=== PATIENT | male | born 1990 | race Caucasian/White ===

== ENCOUNTER 2019-06-29 17:06 | Emergency (ER) | payer OTHER, SELFPAY ==
[2019-06-29 17:17] VITALS: BP 130/75; PULSE 113; RESP 16; TEMP 37.4; O2SAT 95; BMI 29.6
--- NOTE | 2019-06-29 17:44 | DI.RAD.S_ITS ---
PROCEDURE: XR CHEST 2V INDICATIONS: productive cough, crakles in right side lungs, fever, malais TECHNIQUE: 2 views of the chest were acquired. COMPARISON: None. FINDINGS: Surgical changes and devices: None. Lungs and pleura: Lungs are clear. No pleural effusions or pneumothorax. Mediastinum: Mediastinal contours are normal. Heart size is normal. Bones and chest wall: No suspicious bony abnormalities. Soft tissues appear unremarkable. IMPRESSION: No acute cardiopulmonary pathology. Dictated by: Mele Jiang M.D. on 06/29/2019 at 18:01 Approved by: Mele Jiang M.D. on 06/29/2019 at 18:03
[2019-06-29] MEDS: IBUPROFEN 400 MG TABLET PO (18:04)
[2019-06-29] MEDS: ONDANSETRON 4 MG ODT SL (18:05)
[2019-06-29] MEDS: ACETAMINOPHEN 325 MG TABLET 975 MG PO (18:05)
--- NOTE | 2019-06-29 18:10 | ED_ITS ---
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 When he woke up this afternoon he started having fever and feeling weak with chills. Patient reports he has been hydrating well but has intermittent nausea. Patient reports his coworkers are ill with cold symptoms but denies recent foreign travel. Patient had received flu immunization this season. He has been taking NyQuil before going to sleep in the morning since he works mid shift. Patient has been using Flonase as well for ear and nasal congestion. Related Data Previous Rx's Medication Instructions Recorded dextromethorphan-guaifenesin 1 tab PO BID PRN #14 tab 06/29/19 [Mucinex DM] Allergies Allergy/AdvReac Type Severity Reaction Status Date / Time No Known Drug Allergies Allergy Verified 06/29/19 17:17 Review of Systems <OMKAR VargasP - Last Filed: 06/29/19 19:41> Review of Systems Narrative: General: See HPI HEENT: See HPI Respiratory: Denies dyspnea, (+) moist cough, wheezing, hemoptysis, sputum. Cardiovascular: Denies chest pain, palpitations, orthopnea, edema. Gastrointestinal: Denies (+) nausea, vomiting, abdominal pain, diarrhea, constipation, melena. : Denies dysuria, frequency, incontinence, hematuria, urinary retention. Musculoskeletal: Denies weakness, joint pain or bony pain. Skin: Denies rash, skin lesions, or other. Neurologic: Denies weakness, headache, (+) lightheadedness, numbness, change in speech, confusion, seizures, incoordination. Psychiatric: No concerning psychosocial issues. 12-point review of systems is negative except for those stated above. Patient History <DANN Vargas - Last Filed: 06/29/19 19:41> Medical History No significant past medical history (Acute) Surgical History No pertinent past surgical history (Acute) Social History Smoking Status: Never smoker Smoking Status: Never smoker Substance Use Type: does not use Exam <DANN Vargas - Last Filed: 06/29/19 19:41> Narrative Exam Narrative: GEN: Alert, oriented x 3, ill appearing and nourished, but in no acute distress. Head: Normal cephalic, atraumatic. No scalp or temporal tenderness, palpable mass or rash. EYES: Pupils are equal, round, and reactive to light and accommodation. Extraocular muscles are intact bilaterally. There is no subconjunctival hemorrhage, exudate and sclera non-icteric. ENT: Bilateral auditory canals and tympanic membranes red and bulging. Hearing grossly intact. Nose without bleeding with purulent discharge but no deviation. Facial sinuses tender to palpate. Mucous membrane moist, no mucosal lesion. Throat with erythema, tonsillar hypertrophy and exudate. Uvula in midline, airway patent. Neck: Trachea in midline. No JVD, non-tender without lymphadenopathy. No masses or thyroid megaly. Supple, non-tender and no meningeal signs. CARDIAC: Normal regular rate and rhythm without murmurs, gallops, or rubs. No chest wall tenderness. No peripheral edema, cyanosis or pallor. Capillary refill is less than 2 seconds. RESPIRATORY: Lungs are clear in left lobes with fine crackles in right mid and upper lobes to auscultate. Occasional moist cough noted during exam. No wheezes. No stridor, respiratory distress, increase work of breathing, or accessary muscle used. ABD: Abdomen soft, nontender and non-distended. No guarding or rebound tenderness to palpate. Bowel sounds are normal in all 4 quadrants. There is no palpable masses or organomegaly. EXT: Full painless ROM of all extremities with no loss of sensation, strength, effusion or edema. SKIN: Hot, dry, normal color for patient. No erythema, lesions or rash over visible areas. BACK: Nontender without deformity or crepitance. No flank tenderness. NEUROLOGICAL: Alert and oriented to place, time and person. Sensation and motor function intact bilaterally. No facial droops, dysphasia. PSYCHIATRIC: Good judgement and reason, without hallucinations, abnormal affect or abnormal behaviors during the examination. Initial Vital Signs Initial Vital Signs: Vital Signs Temperature 99.3 F 06/29/19 17:17 Pulse Rate 113 H 06/29/19 17:17 Respiratory Rate 16 06/29/19 17:17 Blood Pressure 130/75 06/29/19 17:17 Pulse Oximetry 95 06/29/19 17:17 <Skip Pina DO - Last Filed: 07/01/19 07:01> Initial Vital Signs Initial Vital Signs: Vital Signs Temperature 99.3 F 06/29/19 17:17 Pulse Rate 113 H 06/29/19 17:17 Respiratory Rate 16 06/29/19 17:17 Blood Pressure 130/75 06/29/19 17:17 Pulse Oximetry 95 06/29/19 17:17 Scores <DANN Vargas - Last Filed: 06/29/19 19:41> GCS [place] coma scale eye opening: Spontaneous [place] coma scale verbal response: Orientated [place] coma scale motor response: Obey commands [place] coma scale total score: 15 Course <DANN Vargas - Last Filed: 06/29/19 19:41> Orders Ordered: Discontinued Medications Acetaminophen (Tylenol) 975 mg PO NOW ONE Stop: 06/29/19 17:45 Last Admin: 06/29/19 18:05 Dose: 975 mg Documented by: NICOLLE Ibuprofen (Advil) 400 mg PO NOW ONE Stop: 06/29/19 17:45 Last Admin: 06/29/19 18:04 Dose: 400 mg Documented by: NICOLLE Ondansetron HCl (Zofran Odt) 4 mg SL NOW ONE Stop: 06/29/19 17:45 Last Admin: 06/29/19 18:05 Dose: 4 mg Documented by: NICOLLE Vital Signs Vital signs: Vital Signs - 8 hr 06/29/19 17:17 06/29/19 19:29 Temperature 99.3 F 99.0 F Pulse Rate 113 H 100 H Respiratory Rate 16 16 Blood Pressure 130/75 Blood Pressure [Left Arm] 128/72 Pulse Oximetry 95 95 <DO Mark Delvalle Last Filed: 07/01/19 07:01> Orders Ordered: Discontinued Medications Acetaminophen (Tylenol) 975 mg PO NOW ONE Stop: 06/29/19 17:45 Last Admin: 06/29/19 18:05 Dose: 975 mg Documented by: NICOLLE Ibuprofen (Advil) 400 mg PO NOW ONE Stop: 06/29/19 17:45 Last Admin: 06/29/19 18:04 Dose: 400 mg Documented by: NICOLLE Ondansetron HCl (Zofran Odt) 4 mg SL NOW ONE Stop: 06/29/19 17:45 Last Admin: 06/29/19 18:05 Dose: 4 mg Documented by: NICOLLE Vital Signs Vital signs: Vital Signs - 8 hr 06/29/19 17:17 06/29/19 19:29 Temperature 99.3 F 99.0 F Pulse Rate 113 H 100 H Respiratory Rate 16 16 Blood Pressure 130/75 Blood Pressure [Left Arm] 128/72 Pulse Oximetry 95 95 MDM - URI/Sore Throat <DANN Vargas - Last Filed: 06/29/19 19:41> Differential Diagnosis Differential diagnosis: Likely upper respiratory infection, otitis media, influenza, pharyngitis and other (Sinus infection, pneumonia) Medical Records Attestation: I reviewed the patient's medical records. Lab Data Attestation: I reviewed the patient's lab results. Labs: Lab Results 06/29/19 Range/Units 17:48 Influenza A (RT-PCR) Flu a positive H (NEGATIVE) Influenza B (RT-PCR) Flu b negative (NEGATIVE) Point of Care Testing Rapid Strep A Negative Imaging Data Chest x-ray: Radiologist's Impression: [address] [address] XRay Report Signed Patient: Kaushal Vincent TMR#: [id number] : 1990Acct:[id number] Age/Sex: 28 / MDate of Service: 06/29/19 Loc: ED Accession Number: [id number] Procedure: XR chest 2V Ordering Provider: Darryl Daugherty PROCEDURE: XR CHEST 2V INDICATIONS: productive cough, crakles in right side lungs, fever, malais TECHNIQUE: 2 views of the chest were acquired. COMPARISON: None. FINDINGS: Surgical changes and devices: None. Lungs and pleura: Lungs are clear. No pleural effusions or pneumothorax. Mediastinum: Mediastinal contours are normal. Heart size is normal. Bones and chest wall: No suspicious bony abnormalities. Soft tissues appear unremarkable. IMPRESSION: No acute cardiopulmonary pathology. Dictated by: Mele Jiang M.D. on 06/29/2019 at 18:01 Approved by: Mele Jiang M.D. on 06/29/2019 at 18:[address] 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 Lung sounds with mild crackles on right upper and mid lobes with occasional moist cough. Patient appears to be ill and in discomfort. Patient medicated with Tylenol and Motrin for discomfort while in ED. Flu swab was obtained which showed positive for influenza A. Chest x-ray was obtained with negative for acute findings. Patient opted out for Tamiflu therapy. Patient advised continue with supportive care with [id number] Tylenol and Motrin for aches and fever. Also to use Mucinex DM for cough and continue to use Flonase for congestion and good hand hygiene. Patient's vital signs been improved before discharged to home. Patient provided with work off note for several days. Return precautions were discussed with the patient and patient verbalized understanding and in agreement with the treatment plan. <Skip Pina, - Last Filed: 07/01/19 07:01> Lab Data Labs: Lab Results 06/29/19 Range/Units 17:48 Influenza A (RT-PCR) Flu a positive H (NEGATIVE) Influenza B (RT-PCR) Flu b negative (NEGATIVE) Point of Care Testing Rapid Strep A Negative Discharge Plan Departure Patient Disposition: Home Clinical Impression: Influenza Discharge Date/Time: 06/29/19 19:30 Instructions: DI for Influenza -- Adult Activity Restrictions/Additional Instructions: You have been diagnosed with [influenza a. Chest x-ray test does not show indications for pneumonia. You have deferred Tamiflu which is anti flu medications at this time.]. What to do: *Take your medications as directed. Supportive care with rest, increase oral hydration, medications to treat her symptoms. You can take Tylenol 650-1000 mg up to 4 times a day as needed for fever and aches. Ibuprofen 400 mg to 800 mg 3 times a day with food as needed for fever and aches. Mucinex DM for cough and congestion. Please continue to use Flonase for ear and nasal congestion. Good hand hygiene will prevent transmitting illness to others. Mucinex has been transmitted to [facility] in [place]. *Follow up with your primary care provider in 2-3 days, call for an appointment. Let them know you were seen in the ED and that we asked you to be seen in follow up. *Return to ED if you have any new, worsening, or concerning symptoms, such as [chest pain, breathing difficulty, unable to tolerate fluids, high fever not managed with medications, increasing pain or any acute concerns]. Prescriptions: New dextromethorphan-guaifenesin [Mucinex DM] 60-1,200 mg tablet extended release 12 hr 1 tab PO BID PRN (Reason: flu symptoms) Qty: 14 RF: 0 Referrals: Armando Dias [Primary Care Provider] - Stand Alone Forms: Work Release Note <Skip Pina, - Last Filed: 07/01/19 07:01> Sign Out Provider Sign Out Attestation: Dr Pina Co-Sign Statement: I was available for consultation during this patient's emergency department visit. This chart is signed by myself for administrative purposes only. I did not have direct contact with this patient during this visit. They were seen independently by the APC.
[2019-06-29 18:14] LABS: Influenza A - CEPHEID Flu A POSITIVE (NEGATIVE); Influenza B - CEPHEID Flu B NEGATIVE (NEGATIVE)
[2019-06-29 19:29] VITALS: BP 128/72; PULSE 100; RESP 16; TEMP 37.2; O2SAT 95
== END 2019-06-29 19:30 | disposition home or self-care (01) ==
PROVIDERS: Emergency Provider Nurse Practitioner Family; PCP Student in an Organized Health Care Education/Training Program
DX: J10.1 Influenza due to other identified influenza virus with other respiratory manifestations (principal); R50.9 Fever, unspecified
CPT/HCPCS: 71046; 87502; 87880; 99283; 99284